=== PATIENT | male | born 1995 | race African-American/Black ===

== ENCOUNTER 2021-04-11 14:15 | Emergency (ER) | payer OTHER, SELFPAY ==
[~2021-04-11] VITALS: Ht 162.6 cm; Wt 113.6 kg
[2021-04-11] MEDS ORDERED: methylPREDNISolone 125MG 2ML VIAL IV ONE (14:30)
[2021-04-11] MEDS ORDERED: ALBUTEROL 90 MCG/ACT 8GM HFA INHALER INH ONE (14:30)
[2021-04-11] MEDS ORDERED: dexameTHASONE 20MG/5ML VIAL (J1100 PER 1MG) IM ONE (14:40)
[2021-04-11] MEDS ORDERED: BENA25CA4 PO (15:59)
[2021-04-11] MEDS ORDERED: DECA4TAB PO (15:59)
[2021-04-11] MEDS ORDERED: EPIP0.3I2 IM (15:59)
[2021-04-11] MEDS ORDERED: AUGM875T28 PO (15:59)
[2021-04-11] MEDS ORDERED: ACETAMINOPHEN 325 MG TAB PO ONE (16:00)
[2021-04-11] MEDS ORDERED: AUGMENTIN 875 MG TAB PO ONE (16:00)
[2021-04-11 16:52] LABS: APPEARANCE, URINE CLEAR (CLEAR); BACTERIA, URINE AUTO NEGATIVE (NEGATIVE); BILIRUBIN, URINE AUTO NEGATIVE (NEGATIVE); BLOOD, URINE BLOOD NEGATIVE (NEGATIVE); COLOR, URINE YELLOW (YELLOW); GLUCOSE, URINE (UA) AUTO 3+ mg/dL (NEGATIVE); KETONE, URINE AUTO NEGATIVE (NEGATIVE); LEUKOCYTE ESTERASE, URINE AUTO NEGATIVE (NEGATIVE); NITRITE, URINE AUTO NEGATIVE (NEGATIVE); PROTEIN, URINE AUTO NEGATIVE (NEGATIVE); RBC, URINE AUTO 0 /HPF (0-3); SPECIFIC GRAVITY URINE AUTO 1.023 (1.002-1.035); SQUAMOUS EPITHELIAL CELL UR AU 0 /HPF (0-6); WBC, URINE AUTO 1 /HPF (0-3)
[2021-04-11 17:21] VITALS: BP 146/85
== END 2021-04-11 18:35 | disposition home or self-care (01) ==
LOC: EDSEX 14:15 → EDBD 14:15 → M ED 14:15
DX: K02.9 Dental caries, unspecified (principal); R06.02 Shortness of breath; E11.65 Type 2 diabetes mellitus with hyperglycemia; T39.315A Adverse effect of propionic acid derivatives, initial encounter; Y92.89 Other specified places as the place of occurrence of the external cause; Z88.8 Allergy status to other drugs, medicaments and biological substances
CPT/HCPCS: 36415; 81001; 93041; 94640; 94760; 96372; 99284; J1100